=== PATIENT | female | born 1990 | race Caucasian/White ===

== ENCOUNTER 2016-07-14 13:59 | Emergency (ER) | payer BC ==
[2016-07-14 13:54] LABS: BLOOD UREA NITROGEN 7 mg/dL (9-23); CALCIUM SERUM 8.8 mg/dL (8.4-10.2); CARBON DIOXIDE 28 mmol/L (22-31); CHLORIDE 100 mmol/L (100-111); CREATININE SERUM 0.4 mg/dL (0.6-1.4); GLOM FILT RATE Estimated ABOVE60 mL/min (>60); GLUCOSE FASTING 95 mg/dL (70-110); POTASSIUM 3.6 mmol/L (3.5-5.1); SODIUM 137 mmol/L (135-145)
[~2016-07-14 13:59] MED LIST: VYVANSE10 MG; XANAX0.5 M1
[2016-07-14 14:18] LABS: URINE SOURCE CLEAN CATCH
[2016-07-14 14:20] LABS: URINE APPEARANCE CLEAR; URINE BILIRUBIN NEG (NEG); URINE BLOOD NEG (NEG); URINE COLOR YELLOW; URINE GLUCOSE NEG (NORM); URINE KETONE NEG (NEG); URINE LEUKOCYTE ESTERASE NEG (NEG); URINE NITRATE NEG (NEG); URINE PROTEIN NEG (NEG); URINE SPECIFIC GRAVITY <=1.005 (1.003-1.035); URINE UROBILINOGEN 0.2 MG/DL (NORM)
[2016-07-14 14:21] LABS: MICRO INDICATED? NO
== END 2016-07-14 14:43 | disposition home or self-care (01) ==
LOC: SED 13:59
PROVIDERS: Emergency Medicine
DX: K29.00 Acute gastritis without bleeding (principal); B34.9 Viral infection, unspecified; Z79.899 Other long term (current) drug therapy
CPT/HCPCS: 36415; 80048; 81003; 84703; 96361; 96374; 96375; 99284; J2405